=== PATIENT | female | born 1970 | race Caucasian/White ===

== ENCOUNTER 2021-10-08 08:04 | Outpatient (CLI) | payer BC | END 2021-10-08 08:05 | disposition home or self-care (01) | LOC: CSHCT 08:04 | PROVIDERS: ATTEND Internal Medicine | DX: K63.9 Disease of intestine, unspecified (principal) | CPT/HCPCS: 74177 ==

== ENCOUNTER 2024-04-26 09:43 | Outpatient (CLI) | payer BC | END 2024-04-26 09:44 | disposition home or self-care (01) | LOC: CSHMAMMO 09:43 | PROVIDERS: ATTEND Family Medicine | DX: Z12.31 Encounter for screening mammogram for malignant neoplasm of breast (principal) | CPT/HCPCS: 77063; 77067 ==